=== PATIENT | male | born 1995 | race Caucasian/White ===

== ENCOUNTER 2018-05-04 03:40 | Emergency (ER) | payer BC ==
[2018-05-04 03:53] VITALS: BP 120/88
[2018-05-04] MEDS ORDERED: Erythromycin Base 0.5% Ophth Oint 1 GM Tube EYEBOTH ONE (04:04)
[2018-05-04] MEDS ORDERED: Acetaminophen/HYDROcodone 325-5 MG Tab PO ONE (04:05)
--- NOTE | 2018-05-04 04:12 | EDM.PDOC ---
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 He was wearing a spot welder line she'll, but the battery was not working properly , and the infection was flickering on and off. He states that he woke around 02: 00 this morning with intense bilateral eye pain and difficulty opening his eyes. He took 800 mg of ibuprofen around 02:30. Since he has gotten his eyes open, he states that his pain has improved somewhat, but he still complains of a burning sensation of both eyes with photophobia. He denies blurry vision in either eye. No prior similar instances. The patient does not have a PCP. 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 [No Known Home Meds] 04/28/15 [History] Past Medical History - Infectious Disease History Infectious Disease History: Reports: Chicken Pox - Past Surgical History HEENT Surgical History: Reports: Oral Surgery (wisdom teeth extraction) Musculoskeletal Surgical History: Reports: Arthroscopic Procedure (left knee) Social & Family History - Family History Family Medical History: Noncontributory - Tobacco Use Smoking Status *Q: Current Some Day Smoker Years of Tobacco use: 5 - Caffeine Use Caffeine Use: Reports: Coffee - Alcohol Use Alcohol Use History: Yes Alcohol Use Frequency: Rarely - Recreational Drug Use Recreational Drug Use: No - Living Situation & Occupation Living situation: Reports: Single, with Significant Other (Girlfriend), with Family (Son) 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 ED EXAM GENERAL W FULL EYE - Physical Exam Exam: See Below Exam Limited By: No Limitations General Appearance: Alert, WD/WN, No Apparent Distress Eyelids: Bilateral: Edema (mild) Conjunctiva & Sclera: Bilateral: Injected Cornea Exam: Bilateral: Normal Appearance Extraocular Movements: Bilateral: Intact Pupils: Normal Accommodation Pupillary Size: Bilateral: 7 mm Pupillary Reaction: Bilateral: Sluggish Anterior Chamber: Bilateral: Normal Appearance Course - Vital Signs Last Recorded V/S: Last Vital Signs Temp 36.6 C 05/04/18 03:46 Pulse 79 05/04/18 03:46 Resp 20 05/04/18 03:46 BP 120/88 05/04/18 03:46 Pulse Ox 98 05/04/18 03:46 - Orders/Labs/Meds Orders: Active Orders 24 hr Category Date Time Status Acetaminophen/HYDROcodone [Holly 325-5 MG] Med 05/04/18 04:05 Once 2 tab PO ONETIME ONE Meds: Medications Discontinued Medications Generic Name Dose Route Start Last Admin Trade Name Cristopher PRN Reason Stop Dose Admin Erythromycin 1 gm 05/04/18 04:04 Erythromycin 0.5% Ophth Oint EYEBOTH 05/04/18 04:05 ONETIME ONE - Re-Assessments/Exams Free Text/Narrative Re-Assessment/Exam: 05/04/18 04:16 The patient appears to be suffering from bilateral photokeratitis. He was given 2 tablets of Holly here in the ED, and erythromycin ointment was instilled in each eye per the RN. The vision was prescribed Holly via [facility], and he was given the tube of the remaining erythromycin, which should be sufficient for 2- 3 days of instillation. Departure - Departure Time of Disposition: 04:07 Disposition: Home, Self-Care 01 Condition: Fair Clinical Impression: Photokeratitis of both eyes - Discharge Information *PRESCRIPTION DRUG MONITORING PROGRAM REVIEWED*: Not Applicable *COPY OF PRESCRIPTION DRUG MONITORING REPORT IN PATIENT [place]: Not Applicable Referrals: PCP,None [Primary Care Provider] - Additional Instructions: You were seen in the emergency room for pain in both of your eyes after welding last night. Based on your history and physical examination, you are suffering from photokeratitis, also known as ultraviolet keratitis or UV keratitis. You were given 2 tablets of the opioid pain reliever Holly, and erythromycin ointment was been placed into each of your eyes by the nurse. A prescription for Holly via [facility] has been provided. Take 1-2 tablets of Holly up to every 6 hours, as needed for pain. If you take Holly, do not drive or operate heavy machinery for 10 hours afterwards. Holly will likely cause constipation, so consider taking a stool softener. Instill 1 cm of erythromycin ointment onto the inside of each of your lower eyelids, as demonstrated by the nurse, every 3-4 hours, as needed for discomfort. While photokeratitis can be intensely painful initially, it usually resolves after 2 or 3 days without long-term effects. If you continue to have have eye pain beyond 3 days, please follow-up with an eye doctor. If any other problems, please do not hesitate to return to the ER. - My Orders Last 24 Hours: My Active Orders 05/04/18 04:05 Acetaminophen/HYDROcodone [Holly 325-5 MG] 2 tab PO ONETIME ONE - Assessment/Plan Last 24 Hours: My Active Orders 05/04/18 04:05 Acetaminophen/HYDROcodone [Holly 325-5 MG] 2 tab PO ONETIME ONE
== END 2018-05-04 04:20 | disposition home or self-care (01) ==
LOC: JD.ED 03:40
DX: H16.133 Photokeratitis, bilateral (principal); F17.210 Nicotine dependence, cigarettes, uncomplicated
CPT/HCPCS: 99283; A9270

== ENCOUNTER 2024-04-14 10:37 | Emergency (ER) | payer BC ==
[2024-04-14 11:54] VITALS: BP 136/88; PULSE 70
[2024-04-14] MEDS: Lidocaine 1% 10 ML MDV INJECT ONE (12:30)
[2024-04-14] MEDS: Lidocaine 1% 10 ML MDV ONE (13:21)
== END 2024-04-14 13:19 | disposition home or self-care (01) ==
LOC: EDUNIT# → JD.ED 10:37
DX: S61.012A Laceration without foreign body of left thumb without damage to nail, initial encounter (principal); W26.8XXA Contact with other sharp object(s), not elsewhere classified, initial encounter
CPT/HCPCS: 12001; 99282; J3490

== ENCOUNTER 2024-09-13 22:20 | Emergency (ER) | payer BC ==
[2024-09-13] MEDS ORDERED: Sodium Chloride 0.9% 10 ML Syringe FLUSH PRN (22:32)
[2024-09-13 22:37] LABS: BASOPHILS ABSOLUTE AUTO 0.1 K/mm3 (0.0-0.2); BASOPHILS PERCENT AUTO 0.9 % (0.0-1.0); EOSINOPHILS ABSOLUTE AUTO 0.3 K/mm3 (0.0-0.4); EOSINOPHILS PERCENT AUTO 3.1 % (0.0-6.0); IMMATURE GRAN ABSOLUTE AUTO 0.18 K/mm3 (0.00-0.05); IMMATURE GRAN PERCENT AUTO 1.7 % (0.0-0.4); LYMPHOCYTES ABSOLUTE AUTO 2.3 K/mm3 (1.0-4.8); LYMPHOCYTES PERCENT AUTO 21.3 % (24.0-44.0); MEAN PLATELET VOLUME 9.3 fl (9.4-12.4); MONOCYTES ABSOLUTE AUTO 0.8 K/mm3 (0.0-0.8); MONOCYTES PERCENT AUTO 7.2 % (0.0-8.0); NEUTROPHILS ABSOLUTE AUTO 7.1 K/mm3 (1.8-7.7); NEUTROPHILS PERCENT AUTO 65.8 % (41.0-71.0); NRBC ABSOLUTE 0.00 (0.00-0.02); NRBC PERCENT 0.0 % (0.0-0.2); PLATELET COUNT,PLT 289 K/mm3 (150-400); RED BLOOD CELL COUNT 5.44 M/mm3 (4.52-5.90); WHITE BLOOD CELL COUNT,WBC 10.80 K/mm3 (3.9-11.3)
[2024-09-13] MEDS: diphenhydrAMINE 50 MG/ML SDV IVPUSH ONE (22:51)
[2024-09-13] MEDS: methylPREDNISolone Sodium Succinate 125 MG/2 ML SDV IVPUSH ONE (22:51)
[2024-09-13 23:06] LABS: A/G RATIO 1.2 (1-2); ALANINE AMINOTRANSFERASE,ALT 45.0 U/L (16-63); ASPARTATE AMNIOTRANSFERASE,AST 31.0 U/L (15-37); BILIRUBIN TOTAL 0.5 mg/dL (0.2-1.0); BLOOD UREA NITROGEN,BUN 11.0 mg/dL (7-18); CARBON DIOXIDE,CO2 27.0 mEq/L (21-32); CHLORIDE,CL 97.0 mEq/L (98-107); CREATININE 1.0 mg/dL (0.7-1.3); EST CRCL DRUG DOSING (CG) 115.04 mL/min; ESTIMATED GFR 104.0 mL/min (>60); ETHANOL BLOOD MEDICAL 0.06 gm% (0.00); GLUCOSE RANDOM 122.0 mg/dL (70-99); POTASSIUM,K 3.6 mEq/L (3.5-5.1); PROTEIN TOTAL,TP 7.6 g/dl (6.4-8.2); SODIUM,NA 134.0 mEq/L (136-145)
[2024-09-13 23:58] LABS: APPEARANCE,URINE CLEAR (Clear); GLUCOSE,URINE NEGATIVE (Negative); OCCULT BLOOD,URINE NEGATIVE (Negative)
[2024-09-14 00:08] LABS: BUPRENORPHINE SCREEN,URINE NEGATIVE (CUTOFF=10); METHADONE SCREEN, URINE NEGATIVE (CUT0FF=200); METHAMPHETAMINES SCREEN, URINE NEGATIVE (CUTOFF=500); OXYCODONE SCREEN,URINE NEGATIVE (CUT0FF=100); THC SCREEN,URINE 20 NG/ML NEGATIVE (CUTOFF=50)
[2024-09-14 00:11] LABS: AMPHETAMINES SCREEN, URINE NEGATIVE (CUTOFF=500)
[2024-09-14] MEDS: Ketorolac 15 MG/ML SDV IVPUSH ONE (01:07)
[2024-09-14 01:36] VITALS: BP 135/94; PULSE 100
== END 2024-09-14 01:25 | disposition home or self-care (01) ==
LOC: JD.ED 22:20
DX: M54.6 Pain in thoracic spine (principal); R51.9 Headache, unspecified; R91.1 Solitary pulmonary nodule; Z91.013 Allergy to seafood; V86.56XA Driver of dirt bike or motor/cross bike injured in nontraffic accident, initial encounter
CPT/HCPCS: 36415; 70450; 71260; 72125; 74177; 80053; 80306; 80307; 81003; 83690; 85025; 96361; 96374; 96375; 99284; J1200; J1885; J2919; J7030